=== PATIENT | female | born 1980 | race Caucasian/White ===

== ENCOUNTER 2020-11-16 00:44 | Emergency (ER) | payer BC ==
[~2020-11-16] VITALS: Ht 157.5 cm; Wt 115.0 kg
[2020-11-16 00:52] VITALS: BP 110/86
[2020-11-16] MEDS ORDERED: NEOSPORIN OINT. PKT 1 PACKET ONE (02:01)
== END 2020-11-16 02:18 | disposition home or self-care (01) ==
LOC: ED 01:35
DX: G89.11 Acute pain due to trauma (principal); M25.532 Pain in left wrist; F10.120 Alcohol abuse with intoxication, uncomplicated; W01.0XXA Fall on same level from slipping, tripping and stumbling without subsequent striking against object, initial encounter; Y93.89 Activity, other specified; Y92.410 Unspecified street and highway as the place of occurrence of the external cause; Y99.8 Other external cause status; Y90.0 Blood alcohol level of less than 20 mg/100 ml
CPT/HCPCS: 99283